=== PATIENT | male | born 1985 | race African-American/Black ===

== ENCOUNTER 2016-10-30 13:54 | Emergency (ER) | payer OTHER ==
[~2016-10-30] VITALS: Ht 157.5 cm; Wt 54.4 kg
[2016-10-30 14:28] VITALS: TEMP 97.8
[2016-10-30 15:23] LABS: POTASSIUM 3.7 mmol/L (3.6-5.2); SODIUM 132 mmol/L (136-145)
[2016-10-30 15:35] LABS: PLATELET COUNT 233 K/uL (142-355)
[2016-10-30 18:32] VITALS: BP 101/60
== END 2016-10-30 18:34 | disposition home or self-care (01) ==
LOC: ED 13:54
DX: R10.9 Unspecified abdominal pain (principal); K52.9 Noninfective gastroenteritis and colitis, unspecified
CPT/HCPCS: 36415; 80053; 82150; 83690; 85027; 96372; 99283; J2405; Q9963